=== PATIENT | female | born 1975 | race Caucasian/White ===

== ENCOUNTER 2017-06-11 06:53 | Outpatient (CLI) ==
[2015-04-10 14:14] VITALS: BMI 37.8
--- NOTE | 2017-06-11 09:50 | CT ---
EXAM: CT ABDOMEN AND PELVIS HISTORY: Generalized abdominal pain. Abdominal swelling. The liver is enlarged at 20 cm. There is at least mild fatty infiltration of the liver. No focal hepatic lesion or intrahepatic biliary dila tation. Spleen with one TECHNIQUE: CT abdomen and pelvis without intravenous contrast. Images were reconstructed using 5 mm section thickness. Reformations were prepared. COMPARISON: 04/22/2012 FINDINGS: The liver is enlarged at 20 cm. There is at least mild fatty infiltration of the liver. No focal he patic lesions or intrahepatic biliary dilatation. Spleen is within normal limits. Gallbladder is ab sent. Pancreas and adrenal glands appear normal. Kidneys and ureters appear normal. Normal abdomin al aorta. Stomach appears normal. Normal appendix. Normal bowel gas pattern. Uterus and urinary bladder are u nremarkable. There is no ascites or inflammatory infiltration of the abdominal fat. No ventral abdominal wall hernia. Bones reveal mild sacroiliitis. Lung bases are clear. No pneumop eritoneum. IMPRESSION: 1. Enlarged fatty liver more noticeable than on prior study in 2012. 2. Normal bowel gas pattern. No ascites.
== END 2017-06-11 06:54 | disposition home or self-care (01) ==
LOC: RAD 06:53
PROVIDERS: ATTEND Family Medicine
DX: R10.84 Generalized abdominal pain (principal)
CPT/HCPCS: 74176

== ENCOUNTER 2017-12-22 14:34 | Outpatient (CLI) ==
[2015-04-10 14:14] VITALS: BMI 37.8
--- NOTE | 2017-12-22 16:30 | DI ---
EXAM: Three views of the left ankle. History: Left ankle pain and trauma. Findings: No acute fracture or dislocation. No abnormal calcifications or radiopaque foreign bodies. Joint spaces are relatively preserved. Diffuse subcutaneous edema. Impression: No acute osseous abnormality. Diffuse subcutaneous edema
== END 2017-12-22 14:35 | disposition home or self-care (01) ==
LOC: RAD 14:34
PROVIDERS: ATTEND Family Medicine
DX: S93.402A Sprain of unspecified ligament of left ankle, initial encounter (principal)